=== PATIENT | male | born 1970 | race Caucasian/White ===

== ENCOUNTER 2016-07-23 08:44 | Emergency (ER) | payer OTHER, BC ==
[2016-07-23 08:56] VITALS: BP 128/75; PULSE 76; TEMP 98; BMI 31.7
[2016-07-23] MEDS ORDERED: IBUPROFEN 600 MG TABLET (FP) PO ONE (09:15)
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
[2016-07-23] MEDS ORDERED: IBUPROFEN 400 MG TABLET (FP) PO ONE (09:23)
[2016-07-23 10:00] LABS: BASOPHIL 1.5 % (0-2.0); MCH 31.6 pg (25.7-33.7); MCHC 34.7 g/dl (32.0-35.9); MEAN CELL VOLUME 91.1 fl (80-96); NEUTROPHILS 52.7 % (42.8-82.8); PLATELET COUNT 156 K/MM3 (134-434)
[2016-07-23 10:28] LABS: ANION GAP 11 (8-16); CALCIUM 9.5 mg/dL (8.5-10.1); CHOLESTEROL 204 mg/dL (50-200); CO2 26 mmol/L (21-32); COCKROFT - GAULT 104.97; CREATININE 1.2 mg/dL (0.7-1.3); GLUCOSE,RANDOM 90 mg/dL (74-106); LDH 202 U/L (87-241); SGOT/AST 29 U/L (15-37); SGPT/ALT 23 U/L (12-78); TOT PROT 7.3 g/dl (6.4-8.2)
[2016-07-23 10:30] LABS: ALK PHOS 85 U/L (45-117); BILIRUBIN,TOTAL 0.9 mg/dL (0.2-1.0)
[2016-07-23 12:33] LABS: HIV 1 & 2 AB NEGATIVE; HIV 1 AGp24 NEGATIVE
[2016-07-24 06:06] LABS: HEP B SURFACE AB Reactive (.)
== END 2016-07-23 10:21 | disposition home or self-care (01) ==
LOC: JERFT 08:44 → JER 08:44 → JERFT 10:21
DX: Z77.21 Contact with and (suspected) exposure to potentially hazardous body fluids (principal); S16.1XXA Strain of muscle, fascia and tendon at neck level, initial encounter; X58.XXXA Exposure to other specified factors, initial encounter; Y35.891A Legal intervention involving other specified means, law enforcement official injured, initial encounter; Y92.9 Unspecified place or not applicable; Y99.0 Civilian activity done for income or pay
CPT/HCPCS: 36415; 72050-TC; 80053; 82465; 82977; 83615; 84478; 85025; 86704; 86706; 87340; 87389; 99282-25

== ENCOUNTER 2016-11-18 17:52 | Emergency (ER) | payer OTHER ==
[2016-11-18 18:03] VITALS: BP 127/77; PULSE 78; TEMP 98.4; BMI 28.0
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
== END 2016-11-18 18:41 | disposition home or self-care (01) ==
LOC: JERFT 17:52
DX: S50.812A Abrasion of left forearm, initial encounter (principal); Y35.811A Legal intervention involving manhandling, law enforcement official injured, initial encounter; Y99.0 Civilian activity done for income or pay
CPT/HCPCS: 99281-25

== ENCOUNTER 2017-03-25 10:56 | Emergency (ER) | payer OTHER ==
[2017-03-25 11:35] VITALS: BP 117/80; PULSE 69; TEMP 97.9; BMI 31.0
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
[2017-03-25] MEDS ORDERED: AMOX TR/POT CLAV 875MG/125MG TABLETS (FP) PO ONE (13:13)
[2017-03-25] MEDS ORDERED: DIPHTH,PERTUSS(ACELL),TET 0.5 ML DISP.SYRIN IM ONE (13:14)
[2017-03-25] MEDS ORDERED: AMOX TR/POT CLAV 875MG/125MG TABLETS (FP) ONE (13:26)
[2017-03-27 06:06] LABS: HBsAG SCREEN Negative (Negative); HEPATITIS B CORE ANTIBODY Negative (Negative)
== END 2017-03-25 13:39 | disposition home or self-care (01) ==
LOC: JERFT 10:56
DX: Z77.21 Contact with and (suspected) exposure to potentially hazardous body fluids (principal); S60.470A Other superficial bite of right index finger, initial encounter; Y04.1XXA Assault by human bite, initial encounter; Y93.89 Activity, other specified; Y92.89 Other specified places as the place of occurrence of the external cause; Y99.0 Civilian activity done for income or pay; Y35.811A Legal intervention involving manhandling, law enforcement official injured, initial encounter
CPT/HCPCS: 36415; 86704; 86803; 87340; 87389; 90715; 99281-25

== ENCOUNTER 2018-04-23 11:58 | Emergency (ER) | payer OTHER, BC ==
[2018-04-23 13:02] VITALS: BP 118/75; PULSE 77; TEMP 97.9; BMI 31.9
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
[2018-04-23] MEDS ORDERED: IBUPROFEN 600 MG TABLET (FP) PO ONE (14:05)
== END 2018-04-23 15:15 | disposition home or self-care (01) ==
LOC: JERFT 11:58
DX: M25.562 Pain in left knee (principal); S50.01XA Contusion of right elbow, initial encounter; S54.01XA Injury of ulnar nerve at forearm level, right arm, initial encounter; Y35.891A Legal intervention involving other specified means, law enforcement official injured, initial encounter; Y93.89 Activity, other specified; Y92.89 Other specified places as the place of occurrence of the external cause; Y99.0 Civilian activity done for income or pay
CPT/HCPCS: 73070-TC-RT-FY; 73110-TC-RT-FY; 73130-TC-RT-FY; 73560-TC-LT-FY; 99281-25

== ENCOUNTER 2018-09-26 09:16 | Emergency (ER) | payer OTHER ==
[2018-09-26 09:22] VITALS: BP 123/73; PULSE 78; TEMP 98.3; BMI 31.9
[2018-09-26] MEDS ORDERED: DIPHTH,PERTUSS(ACELL),TET 0.5 ML DISP.SYRIN IM ONE ×2 (09:28→09:44)
[2018-09-26] MEDS ORDERED: RABIES VACCINE (PCEC)/PF 2.5 UNIT/VIAL IM ONE (09:28)
[2018-09-26] MEDS ORDERED: RABIES IMMUNE GLOBULIN 300 UNITS/1 ML VIAL IM ONE (09:28)
[2018-09-26] MEDS ORDERED: AMOX TR/POT CLAV 875MG/125MG TABLETS (FP) PO ONE (09:34)
--- NOTE | 2018-09-26 09:34 | PDOC ---
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 Patient reports the dog was a rottweiler. Patient's tetanus status is unknown and he has never had a rabies vaccine No recent travel or sick contacts. PAST MEDICAL HISTORY: Denies past medical history FAMILY HISTORY: Denies SOCIAL HISTORY: Denies tobacco, alcohol, illicit drug use. SURGICAL HISTORY: Denies ALLERGIES: No known drug allergies REVIEW OF SYSTEMS General/Constitutional: Denies fever or chills. Denies weakness, weight change. HEENT: Denies change in vision. Denies ear pain or discharge. Denies sore throat. Cardiovascular: Denies chest pain or shortness of breath. Respiratory: Denies cough, wheezing, or hemoptysis. Gastrointestinal: Denies nausea, vomiting, diarrhea or constipation. Denies rectal bleeding. Genitourinary: Denies dysuria, frequency, or change in urination. Musculoskeletal: Denies joint or muscle swelling or pain. Denies neck or back pain. Skin: Dog bite to left thumb. Neurologic: Denies headache, vertigo, loss of consciousness, or loss of sensation. PHYSICAL EXAM General Appearance: Well-appearing, appropriately dressed. No apparent distress , no intoxication. HEENT: EOMI, PERRLA, normal ENT inspection, normal voice, TMs normal, pharynx normal. No conjunctival pallor. No photophobia, scleral icterus. Neck: Supple. Trachea midline. No tenderness, rigidity, carotid bruit, stridor , lymphadenopathy, or thyromegaly. Respiratory/Chest: Lungs CTAB. No shortness of breath, chest tenderness, respiratory distress, accessory muscle use. No crackles, rales, rhonchi, stridor , wheezing, dullness Cardiovascular: RRR. S1, S2. No JVD, murmur, bradycardia, tachycardia. Vascular Pulses: Dorsalis-Pedis (R): 2+, Dorsalis-Pedis (L): 2+ Gastrointestinal/Abdominal: Normal bowel sounds. Abdomen soft, non-distended. No tenderness or rebound tenderness. No organomegaly, pulsatile mass, guarding , hernia, hepatomegaly, splenomegaly. Lymphatic: No adenopathy, tenderness. Musculoskeletal/Extremities: Normal inspection. FROM of all extremities, normal capillary refill. Pelvis Stable. No CVA tenderness. No tenderness to extremities, pedal edema, swelling, erythema or deformity. Integumentary: Small flap laceration to dorsal aspect of left thumb, superficial laceration to volar aspect of left thumb, both with dried blood. No active bleeding. Appropriate color, dry, warm. No cyanosis, erythema, jaundice or rash Neurologic: station gateman II-XII intact. Fully oriented, alert. Appropriate mood/affect. Motor strength 5/5. No appreciable EOM palsy, facial droop or sensory deficit. Past History - Past Medical History Allergies/Adverse Reactions: Allergies Allergy/AdvReac Type Severity Reaction Status Date / Time No Known Allergies Allergy Verified 09/26/18 09:17 Home Medications: Ambulatory Orders Amoxicillin/Potassium Clav [Augmentin 875-125 Tablet] 1 each PO BID #14 tablet 09/26/18 COPD: No - Immunization History Immunization Up to Date: Yes - Suicide/Smoking/Psychosocial Hx Smoking History: Never smoked Have you smoked in the past 12 months: No Number of Cigarettes Smoked Daily: 0 Cigars Per Day: 0 Hx Alcohol Use: Yes Drug/Substance Use Hx: No Substance Use Type: Alcohol *Physical Exam - Vital Signs Last Vital Signs Temp Pulse Resp BP Pulse Ox 98.3 F 78 16 123/73 97 09/26/18 09:17 09/26/18 09:17 09/26/18 09:17 09/26/18 09:17 09/26/18 09:17 Medical Decision Making - Medical Decision Making 09/26/18 09:33 47 yo M with no PMH working for [employer] presents to fast track with laceration to hand s/p dog bite approximately 45 minutes VIDEO INTERN. -tdap -rabies IM, IG -augmentin for prophylaxis given location of wound wounds irrigated with 1L of high pressure NS. wound infiltrated with RIG, remaining RIG given to b/l deltoids. Advised patient to return per rabies vaccine schedule. Advised patient of signs and symptoms for return to ED. Patient verbalized understanding and agrees to plan. *DC/Admit/Observation/Transfer Diagnosis at time of Disposition: Dog bite Qualifiers: Encounter type: initial encounter Qualified Code(s): W54.0XXA - Bitten by dog, initial encounter - Discharge Dispostion Disposition: HOME Condition at time of disposition: Stable Decision to Admit order: No - Prescriptions Prescriptions: Amoxicillin/Potassium Clav [Augmentin 875-125 Tablet] 1 each PO BID #14 tablet - Referrals - Patient Instructions Printed Discharge Instructions: DI for Dog Bite Additional Instructions: Please finish all antibiotics as prescribed. Monitor your injury for any signs of infection, such as redness, swelling, worsening pain, or streaking and return should you develop any of these symptoms. If you develop fever, chills, vomiting, diarrhea, or any new or worsening symptoms, please return to the ER immediately as well. You MUST return on 09/29, 10/03, and 10/10 for to complete the rabies vaccine schedule. - Post Discharge Activity
[2018-09-26] MEDS ORDERED: AMOX TR/POT CLAV 875MG/125MG TABLETS (FP) ONE (09:43)
== END 2018-09-26 10:21 | disposition home or self-care (01) ==
LOC: JER 09:16
PROC: 3E023GC Introduction of Other Therapeutic Substance into Muscle, Percutaneous Approach (ICD-10-PCS; principal; 2018-09-26)
PROC: 3E0234Z Introduction of Serum, Toxoid and Vaccine into Muscle, Percutaneous Approach (ICD-10-PCS; 2018-09-26)
DX: S61.052A Open bite of left thumb without damage to nail, initial encounter (principal); W54.0XXA Bitten by dog, initial encounter; Y93.9 Activity, unspecified; Y92.9 Unspecified place or not applicable; Y99.0 Civilian activity done for income or pay
CPT/HCPCS: 90375; 90675; 90715; 99281-25

== ENCOUNTER 2018-09-28 10:50 | Emergency (ER) | payer OTHER ==
[2018-09-28 10:54] VITALS: BP 127/76; PULSE 73; TEMP 98; BMI 31.3
--- NOTE | 2018-09-28 11:08 | PDOC ---
History of Present Illness - General Chief Complaint: Revisit,Rabies Injection Stated Complaint: DOG BITE Time Seen by Provider: 09/28/18 11:07 History Source: Patient - History of Present Illness Initial Comments: 09/28/18 11:13 Chief complaint: rabies vaccine pt is a 47-year-old male who is here for second rabies vaccine. Patient was bitten to the thumb, the thumb is healing well. Patient is not supposed to be here today after review of the EMR, patient is supposed to be here tomorrow which is day 3. GENERAL/CONSTITUTIONAL: No fever, weakness. dizziness HEAD, EYES, EARS, NOSE AND THROAT: No change in vision. No ear pain or discharge. No sore throat. CARDIOVASCULAR: No chest pain RESPIRATORY: No shortness of breath or cough GASTROINTESTINAL: No pain, nausea, vomiting, diarrhea or constipation GENITOURINARY: No dysuria MUSCULOSKELETAL: No neck or back pain SKIN: No rash NEUROLOGIC: No headache, vertigo, loss of consciousness, or loss of sensation. Patient is alert and oriented ambulatory no distress, wound to the thumb is healing well Past History - Past Medical History Allergies/Adverse Reactions: Allergies Allergy/AdvReac Type Severity Reaction Status Date / Time No Known Allergies Allergy Verified 09/28/18 10:54 Home Medications: Ambulatory Orders Amoxicillin/Potassium Clav [Augmentin 875-125 Tablet] 1 each PO BID #14 tablet 09/26/18 COPD: No - Immunization History Immunization Up to Date: Yes - Suicide/Smoking/Psychosocial Hx Smoking History: Never smoked Have you smoked in the past 12 months: No Number of Cigarettes Smoked Daily: 0 Cigars Per Day: 0 Hx Alcohol Use: No Drug/Substance Use Hx: No Substance Use Type: Alcohol *Physical Exam - Vital Signs Last Vital Signs Temp Pulse Resp BP Pulse Ox 98 F 73 18 127/76 96 09/28/18 10:53 09/28/18 10:53 09/28/18 10:53 09/28/18 10:53 09/28/18 10:53 Medical Decision Making - Medical Decision Making 09/28/18 11:18 Patient did not get rabies vaccine today, it was not due today, will return tomorrow *DC/Admit/Observation/Transfer Diagnosis at time of Disposition: Need for rabies vaccination - Discharge Dispostion Disposition: HOME Condition at time of disposition: Stable - Referrals Referrals: Nagi Alvarez MD [Primary Care Provider] - - Patient Instructions Additional Instructions: Return tomorrow for rabies vaccine - Post Discharge Activity
== END 2018-09-28 11:23 | disposition home or self-care (01) ==
LOC: JERFT 10:50
PROC: 3E0234Z Introduction of Serum, Toxoid and Vaccine into Muscle, Percutaneous Approach (ICD-10-PCS; principal; 2018-09-28)
DX: Z23 Encounter for immunization (principal); Z20.3 Contact with and (suspected) exposure to rabies
CPT/HCPCS: 99281-25

== ENCOUNTER 2018-09-29 10:43 | Emergency (ER) | payer OTHER ==
[2018-09-29 10:46] VITALS: BP 115/69; PULSE 71; TEMP 98.1; BMI 31.4
--- NOTE | 2018-09-29 10:49 | PDOC ---
History of Present Illness - General Chief Complaint: Bite Stated Complaint: FOLLOW UP ON A SHOT Time Seen by Provider: 09/29/18 10:44 History Source: Patient Exam Limitations: No Limitations - History of Present Illness Initial Comments: 09/29/18 10:49 Pt is a 47y M who was bit by what was thought to be a stray dog on 09/26 and was started rabies HR[facility], however it was later determined that the dog was found and brought to an animal detention ([facility] [facility] - and was going to be held for 10 days pending verification/observation per patient. Maintenance Tech of the dog was found and it was determined the pt did not have their rabies vaccine. The pt is otherwise asypmtmoatic without any increased pain, redness, swelling, thirst or other complaints. ROS: Skin: Denies redness, swelling, warmth General: denies fever/chills Physical exam: general: well appearing, in no distress skin: L thumb with healing eschars w/o erythema/induration/discharge/warmth a&p healing dog bite wounds, as the dog in question has been identified and is able to be observed, the pt does not need the rabies. will have the pt follow up with detention regarding condition of the dog in 10 days, if the condition of the dog cannot be verified, the pt is aware he needs to return for continued rabies series return precatuoins were discussed 09/29/18 11:06 discussed with [facility] [facility] ([phone]) - the dog is currently still there. the [facility] is involved and will be held for 10 days for observation. Past History - Past Medical History Allergies/Adverse Reactions: Allergies Allergy/AdvReac Type Severity Reaction Status Date / Time No Known Allergies Allergy Verified 09/29/18 10:46 Home Medications: Ambulatory Orders Amoxicillin/Potassium Clav [Augmentin 875-125 Tablet] 1 each PO BID #14 tablet 09/26/18 COPD: No - Immunization History Immunization Up to Date: Yes - Suicide/Smoking/Psychosocial Hx Smoking History: Never smoked Have you smoked in the past 12 months: No Number of Cigarettes Smoked Daily: 0 Cigars Per Day: 0 Hx Alcohol Use: No Drug/Substance Use Hx: No Substance Use Type: Alcohol *DC/Admit/Observation/Transfer Diagnosis at time of Disposition: Dog bite Qualifiers: Encounter type: subsequent encounter Qualified Code(s): W54.0XXD - Bitten by dog, subsequent encounter - Discharge Dispostion Disposition: HOME Condition at time of disposition: Improved Decision to Admit order: No - Referrals - Patient Instructions Printed Discharge Instructions: DI for Animal Bites Additional Instructions: Please verify with the animal detention or optometrist president/practice owner that the dog is well 10 days after the bite. If the dog is fine and behaving normally, you do not need any further rabies shots. If you lose track of the dog or cannot verify that the dog is alive 10 days after the bite, you need to return to continue your rabies series. Print Language: MALTESE - Post Discharge Activity
== END 2018-09-29 11:08 | disposition home or self-care (01) ==
LOC: JER 10:43
DX: Z23 Encounter for immunization (principal); S61.052D Open bite of left thumb without damage to nail, subsequent encounter; W54.0XXD Bitten by dog, subsequent encounter
CPT/HCPCS: 99281-25

== ENCOUNTER 2020-07-15 10:49 | Emergency (ER) | payer OTHER ==
[2020-07-15] MEDS ORDERED: IBUPROFEN 600 MG TABLET (FP) PO ONE ×2 (11:02→11:25)
[2020-07-15 11:05] VITALS: BP 114/85; PULSE 70; TEMP 97.8; BMI 31.9
== END 2020-07-15 11:49 | disposition home or self-care (01) ==
LOC: FER 10:49
DX: S40.912A Unspecified superficial injury of left shoulder, initial encounter (principal)
CPT/HCPCS: 73030-TC-LT-FY; 99284-25

== ENCOUNTER 2021-09-01 21:18 | Emergency (ER) | payer OTHER ==
[2021-09-01 21:29] VITALS: BP 114/76; PULSE 72; RESP 16; TEMP 98.4; BMI 32.6
== END 2021-09-01 21:38 | disposition home or self-care (01) ==
LOC: FER 21:18
DX: U07.1 COVID-19 (principal)
CPT/HCPCS: 0241U-QW; 99283-25

== ENCOUNTER 2021-10-31 06:29 | Day surgery (SDC) | payer OTHER ==
[2021-10-29 10:49] VITALS: BMI 32.3
[2021-10-31] MEDS ORDERED: MIDAZOLAM HCL 2 MG/2 ML SINGLE DOSE VIAL ONE (07:05)
[2021-10-31] MEDS ORDERED: ROPIVACAINE HCL/PF 100 MG/20 ML VIAL ONE (07:06)
[2021-10-31] MEDS ORDERED: KETAMINE HCL 500 MG/10 ML VIAL ONE (07:06)
[2021-10-31] MEDS ORDERED: PROPOFOL 60 ML ONE (07:12)
[2021-10-31] MEDS ORDERED: BACITRACIN 15 GM TUBE TOPICAL OINTMENT ONE (07:16)
[2021-10-31] MEDS ORDERED: ONDANSETRON 4 MG/2 ML VIAL IVPUSH PRN (09:29)
[2021-10-31] MEDS ORDERED: oxyCODONE HCL 5 MG TABLET PO PRN (09:29)
[2021-10-31] MEDS ORDERED: LACTATED RINGERS SOLUTION 1,000 ML IV SCH (09:30)
[2021-10-31 10:39] VITALS: RESP 18; TEMP 97.7
[2021-10-31 12:47] VITALS: BP 121/72; PULSE 58
== END 2021-10-31 11:45 | disposition home or self-care (01) ==
LOC: FASU 06:29
PROVIDERS: ATTEND Orthopaedic Surgery Sports Medicine
PROC: 0RQK4ZZ Repair Left Shoulder Joint, Percutaneous Endoscopic Approach (ICD-10-PCS; principal; 2021-10-31 08:10)
PROC: 0LS44ZZ Reposition Left Upper Arm Tendon, Percutaneous Endoscopic Approach (ICD-10-PCS; 2021-10-31 08:10)
PROC: 0RBK4ZZ Excision of Left Shoulder Joint, Percutaneous Endoscopic Approach (ICD-10-PCS; 2021-10-31 08:10)
DX: S43.432A Superior glenoid labrum lesion of left shoulder, initial encounter (principal); M67.814 Other specified disorders of tendon, left shoulder; X58.XXXA Exposure to other specified factors, initial encounter; Y93.9 Activity, unspecified; Y92.9 Unspecified place or not applicable
CPT/HCPCS: 94760; C1713

== ENCOUNTER 2022-09-05 05:09 | Day surgery (SDC) | payer OTHER ==
[2022-09-01 13:25] VITALS: BMI 32.5
[2022-09-05] MEDS ORDERED: BUPIVACAINE HCL/PF 0.75% 10 ML VIAL ONE (07:13)
[2022-09-05] MEDS ORDERED: LIDOCAINE HCL/PF 1% SDV 5ML VIAL ONE (07:14)
[2022-09-05] MEDS ORDERED: ACETAMINOPHEN 500 MG TABLET (FP) PO PRN (07:50)
[2022-09-05 09:29] VITALS: BP 122/80; PULSE 52; RESP 20; TEMP 98.5
== END 2022-09-05 09:25 | disposition home or self-care (01) ==
LOC: JASU-SURG 05:09
PROVIDERS: ATTEND Pain Medicine Pain Medicine
PROC: 3E0T33Z Introduction of Anti-inflammatory into Peripheral Nerves and Plexi, Percutaneous Approach (ICD-10-PCS; 2022-09-05)
PROC: 3E0T3BZ Introduction of Anesthetic Agent into Peripheral Nerves and Plexi, Percutaneous Approach (ICD-10-PCS; principal; 2022-09-05 08:30)
DX: M47.816 Spondylosis without myelopathy or radiculopathy, lumbar region (principal)
CPT/HCPCS: 76000-TC-FY

== ENCOUNTER 2022-10-03 04:31 | Day surgery (SDC) | payer OTHER ==
[2022-10-01 12:52] VITALS: BMI 32.5
[2022-10-03] MEDS ORDERED: BUPIVACAINE HCL/PF 0.75% 10 ML VIAL ONE (08:17)
[2022-10-03] MEDS ORDERED: LIDOCAINE HCL/PF 1% SDV 5ML VIAL ONE (08:17)
[2022-10-03] MEDS ORDERED: ACETAMINOPHEN 500 MG TABLET (FP) PO PRN (09:25)
[2022-10-03] MEDS ORDERED: BUPIVACAINE HCL/PF 0.75% 10 ML VIAL NR ONE (15:26)
[2022-10-03] MEDS ORDERED: LIDOCAINE HCL 1% PRESERVATIVE FREE - 30ML VIAL INF ONE (15:26)
[2022-10-03 16:27] VITALS: RESP 18
[2022-10-03 16:31] VITALS: BP 110/74; PULSE 62; TEMP 97.8
== END 2022-10-03 16:15 | disposition home or self-care (01) ==
LOC: JASU-SURG 04:31
PROVIDERS: ATTEND Pain Medicine Pain Medicine
PROC: 3E0T33Z Introduction of Anti-inflammatory into Peripheral Nerves and Plexi, Percutaneous Approach (ICD-10-PCS; 2022-10-03)
PROC: 3E0T3BZ Introduction of Anesthetic Agent into Peripheral Nerves and Plexi, Percutaneous Approach (ICD-10-PCS; principal; 2022-10-03 16:15)
DX: M47.816 Spondylosis without myelopathy or radiculopathy, lumbar region (principal)
CPT/HCPCS: 76000-TC-FY